=== PATIENT | female | born 1950 | race Caucasian/White ===

== ENCOUNTER 2022-01-16 14:43 | Emergency (ER) | payer MEDICARE ==
[2022-01-16 16:39] LABS: ESTIMATED GFR 79 mL/min (>60); TROPONIN I HIGH SENSITIVITY 13.9 pg/mL (<=60.3)
[2022-01-16] MEDS ORDERED: Sodium Chloride 0.9% 10 ML Syringe FLUSH PRN (17:28)
[2022-01-16] MEDS ORDERED: Furosemide 40 MG/4 ML VIAL IVPUSH ONE (17:29)
== END 2022-01-16 19:35 | disposition home or self-care (01) ==
LOC: JP.ED 14:43
DX: R07.89 Other chest pain (principal); E87.70 Fluid overload, unspecified; R79.89 Other specified abnormal findings of blood chemistry; Z88.5 Allergy status to narcotic agent; Z88.8 Allergy status to other drugs, medicaments and biological substances; Z91.040 Latex allergy status; Z88.1 Allergy status to other antibiotic agents; Z88.6 Allergy status to analgesic agent; Z88.2 Allergy status to sulfonamides; Z88.7 Allergy status to serum and vaccine; Z79.899 Other long term (current) drug therapy
CPT/HCPCS: 36415; 71046; 80053; 81001; 83880; 84484; 85025; 87086; 93005; 93010; 96374; 99282; 99285; J1940; J3490

== ENCOUNTER 2023-03-09 11:44 | Emergency (ER) | payer MEDICARE ==
[2023-03-09 13:55] LABS: APPEARANCE,URINE CLOUDY (CLEAR); BILIRUBIN,URINE NEGATIVE (NEGATIVE); COLOR,URINE YELLOW (YELLOW); GLUCOSE,URINE NEGATIVE (NEGATIVE); KETONES,URINE NEGATIVE (NEGATIVE); LEUKOCYTE ESTERASE,URINE MODERATE (NEGATIVE); NITRITE,URINE NEGATIVE (NEGATIVE); OCCULT BLOOD,URINE LARGE (NEGATIVE); PROTEIN,URINE 30 mg/dL (NEGATIVE); UROBILINOGEN,URINE 0.2 EU/dL (0.2-1.0)
[2023-03-09] MEDS ORDERED: cefTRIAXone 1 GM, Lidocaine 1% 2.1 ML IM ONE ×2 (14:41)
[2023-03-09 15:33] LABS: AMORPHOUS SEDIMENT,URINE RARE; BACTERIA,URINE MANY; EPITHELIAL CELLS,URINE RARE; MUCUS,URINE NOT SEEN; RBC,URINE 50-75 (0-5); WBC,URINE 20-30 (0-5)
== END 2023-03-09 15:56 | disposition home or self-care (01) ==
LOC: JP.ED 11:44
DX: N39.0 Urinary tract infection, site not specified (principal); I10 Essential (primary) hypertension; J45.909 Unspecified asthma, uncomplicated; E11.9 Type 2 diabetes mellitus without complications; Z88.8 Allergy status to other drugs, medicaments and biological substances; Z91.040 Latex allergy status; Z88.5 Allergy status to narcotic agent; Z88.2 Allergy status to sulfonamides; Z88.7 Allergy status to serum and vaccine; Z88.1 Allergy status to other antibiotic agents; Z79.899 Other long term (current) drug therapy
CPT/HCPCS: 81001; 87086; 87088; 87186; 96372; 99283; J0696

== ENCOUNTER → 2023-03-17 | Day surgery (SDC) | payer MEDICARE ==
[~2023-03-17] MED LIST: Propofol 200 MG/20 ML SDV ONE; Scopolamine 1.5 MG Transdermal Patch TOP SCH; Sodium Chloride 0.9% 1,000 ML IV SCH; fentaNYL 100 MCG/2 ML SDV ONE
== END ==
LOC: JP.SDS 08:06
PROVIDERS: ATTEND Surgery
DX: K22.89 Other specified disease of esophagus (principal); Z12.11 Encounter for screening for malignant neoplasm of colon; Z53.9 Procedure and treatment not carried out, unspecified reason; K21.9 Gastro-esophageal reflux disease without esophagitis; F41.8 Other specified anxiety disorders; I25.10 Atherosclerotic heart disease of native coronary artery without angina pectoris; I10 Essential (primary) hypertension; C85.90 Non-Hodgkin lymphoma, unspecified, unspecified site; Z85.028 Personal history of other malignant neoplasm of stomach; Z87.19 Personal history of other diseases of the digestive system; Z88.8 Allergy status to other drugs, medicaments and biological substances; Z91.041 Radiographic dye allergy status; Z88.5 Allergy status to narcotic agent; Z88.1 Allergy status to other antibiotic agents; Z91.040 Latex allergy status
CPT/HCPCS: 43239; 88305; A9270; J1642; J2704; J3010; J7030

== ENCOUNTER 2023-03-24 06:11 | Day surgery (SDC) | payer MEDICARE ==
[2023-03-24] MEDS ORDERED: Sodium Chloride 0.9% 1,000 ML IV SCH (06:35)
[2023-03-24] MEDS ORDERED: Scopolamine 1.5 MG Transdermal Patch TOP ONE (07:14)
[2023-03-24] MEDS ORDERED: Propofol 200 MG/20 ML SDV ONE ×2 (07:30→08:18)
[2023-03-24] MEDS ORDERED: fentaNYL 100 MCG/2 ML SDV ONE (07:30)
== END 2023-03-24 09:48 | disposition home or self-care (01) ==
LOC: JP.SDS 06:11
PROVIDERS: ATTEND Surgery
DX: Z12.11 Encounter for screening for malignant neoplasm of colon (principal); K57.30 Diverticulosis of large intestine without perforation or abscess without bleeding; I25.10 Atherosclerotic heart disease of native coronary artery without angina pectoris; C85.90 Non-Hodgkin lymphoma, unspecified, unspecified site; E66.9 Obesity, unspecified; Z91.041 Radiographic dye allergy status; Z88.8 Allergy status to other drugs, medicaments and biological substances; Z88.5 Allergy status to narcotic agent; Z91.040 Latex allergy status; Z88.1 Allergy status to other antibiotic agents; Z91.013 Allergy to seafood
CPT/HCPCS: A9270; G0121; J1642; J2704; J3010; J7030

== ENCOUNTER → 2024-01-16 | Day surgery (SDC) | payer MEDICARE ==
[~2024-01-16] MED LIST changes: +Ondansetron 4 MG/2 ML SDV ONE; -Scopolamine 1.5 MG Transdermal Patch TOP SCH; -Sodium Chloride 0.9% 1,000 ML IV SCH; -fentaNYL 100 MCG/2 ML SDV ONE; +fentaNYL 50 MCG/ML SDV ONE
[2024-01-16] MEDS: Dextrose 5%-Lactated Ringers 1,000 ML IV SCH (08:10)
== END ==
LOC: JP.SDS 07:29
PROVIDERS: ATTEND Family Medicine
DX: R10.13 Epigastric pain (principal); K21.9 Gastro-esophageal reflux disease without esophagitis; I10 Essential (primary) hypertension; I25.10 Atherosclerotic heart disease of native coronary artery without angina pectoris; E11.9 Type 2 diabetes mellitus without complications; J44.9 Chronic obstructive pulmonary disease, unspecified
CPT/HCPCS: 43235; J1642; J2405; J2704; J3010; J7121

== ENCOUNTER 2024-03-14 06:30 | Day surgery (SDC) | payer MEDICARE ==
[2024-03-14] MEDS: Sodium Chloride 0.9% 1,000 ML IV SCH (07:14)
[2024-03-14] MEDS ORDERED: Propofol 200 MG/20 ML SDV ONE (07:25)
[2024-03-14] MEDS: Ondansetron 4 MG/2 ML SDV IVPUSH ONE (09:39)
== END 2024-03-14 09:45 | disposition home or self-care (01) ==
LOC: JP.SDS 06:30
PROVIDERS: ATTEND Surgery
DX: R13.10 Dysphagia, unspecified (principal); J45.909 Unspecified asthma, uncomplicated; I11.0 Hypertensive heart disease with heart failure; K21.9 Gastro-esophageal reflux disease without esophagitis; I50.9 Heart failure, unspecified; E11.9 Type 2 diabetes mellitus without complications; Z79.84 Long term (current) use of oral hypoglycemic drugs; Z79.02 Long term (current) use of antithrombotics/antiplatelets; Z79.899 Other long term (current) drug therapy
CPT/HCPCS: 00731-QZ; J1642; J2405; J2704; J7030

== ENCOUNTER 2024-04-17 18:04 | Inpatient (IN) | payer MEDICARE ==
[2024-04-17 18:43] LABS: BASOPHILS ABSOLUTE AUTO 0.06 K/uL (0.00-0.10); BASOPHILS PERCENT AUTO 0.7 % (0.1-1.3); EOSINOPHILS ABSOLUTE AUTO 0.14 K/uL (0.00-0.40); EOSINOPHILS PERCENT AUTO 1.6 % (0.0-5.4); HEMATOCRIT 36.9 % (34.3-46.0); IMMATURE GRAN ABSOLUTE AUTO 0.04 K/uL (0.00-0.23); IMMATURE GRAN PERCENT AUTO 0.5 % (0.0-0.7); LYMPHOCYTES ABSOLUTE AUTO 1.71 K/uL (0.8-3.3); MEAN CORPUSCULAR HEMOGLOBIN 29.7 pg (31.6-35.5); MEAN CORPUSCULAR HGB CONC 35.2 g/dL (31.6-35.5); MEAN CORPUSCULAR VOLUME 84.2 fL (81.4-99.0); MONOCYTES ABSOLUTE AUTO 0.98 K/uL (0.20-0.90); MONOCYTES PERCENT AUTO 11.5 % (3.3-12.6); NEUTROPHILS PERCENT AUTO 65.7 % (40.0-78.1); PLATELET COUNT,PLT 252 K/uL (130-375); RED BLOOD CELL COUNT 4.38 M/uL (3.77-5.24); WHITE BLOOD CELL COUNT,WBC 8.5 K/uL (3.2-11.0)
[2024-04-17] MEDS: Sodium Chloride 0.9% 1,000 ML IV SCH ×3 (18:44→23:56)
[2024-04-17 19:05] LABS: A/G RATIO 0.8 (1.2-2.2); ALANINE AMINOTRANSFERASE,ALT 23 U/L (12-78); ALBUMIN 2.8 g/dL (3.4-5.0); ALKALINE PHOSPHATASE 85 U/L (46-116); ASPARTATE AMNIOTRANSFERASE,AST 30 U/L (15-37); BILIRUBIN TOTAL 0.6 mg/dL (0.2-1.0); BLOOD UREA NITROGEN,BUN 7 mg/dL (7-18); CALCIUM 8.7 mg/dL (8.5-10.1); CARBON DIOXIDE,CO2 28 mmol/L (21-32); CHLORIDE,CL 100 mmol/L (100-108); CREATININE 1.5 mg/dL (0.6-1.0); EST CRCL DRUG DOSING (CG) 24.35 mL/min; ESTIMATED GFR 37 mL/min (>60); GLUCOSE RANDOM 144 mg/dL (74-106); PROTEIN TOTAL,TP 6.5 g/dL (6.4-8.2)
[2024-04-17 19:09] LABS: ANION GAP 14.2 mmol/L (5.0-14.0); SODIUM,NA 140 mmol/L (140-148)
[2024-04-17 19:10] LABS: POTASSIUM,K 2.2 mmol/L (3.6-5.2)
[2024-04-17] MEDS: Ondansetron 4 MG/2 ML SDV IVPUSH ONE (19:40)
[2024-04-17] MEDS: Potassium Chloride 10 MEQ in Premix Bag 1 BAG IV ONE ×3 (20:03→23:47)
[2024-04-17 23:01] LABS: APPEARANCE,URINE SLIGHTLY CLOUDY (CLEAR); BILIRUBIN,URINE SMALL (NEGATIVE); COLOR,URINE YELLOW (YELLOW); GLUCOSE,URINE NEGATIVE (NEGATIVE); KETONES,URINE 15 mg/dL (NEGATIVE); LEUKOCYTE ESTERASE,URINE SMALL (NEGATIVE); NITRITE,URINE NEGATIVE (NEGATIVE); OCCULT BLOOD,URINE NEGATIVE (NEGATIVE); PH,URINE 6.5 (5.0-8.0); PROTEIN,URINE 30 mg/dL (NEGATIVE); UROBILINOGEN,URINE 0.2 EU/dL (0.2-1.0)
[2024-04-17] MEDS ORDERED: Insulin Lispro 100 Unit/ML 3 ML KwikPen SUBCUT SCH (23:05)
[2024-04-17] MEDS ORDERED: Nitroglycerin 0.4 MG Tab.SL SL PRN (23:05)
[2024-04-17] MEDS ORDERED: Albuterol 6.7 GM Inhaler INH PRN (23:05)
[2024-04-17] MEDS ORDERED: Triamcinolone Acetonide 0.1% Crm 15 GM Tube TOP PRN (23:05)
[2024-04-17] MEDS ORDERED: Ondansetron 4 MG Tab.DIS PO PRN (23:05)
[2024-04-17] MEDS ORDERED: Acetaminophen/HYDROcodone 325-5 MG Tab PO PRN (23:05)
[2024-04-17 23:19] LABS: AMORPHOUS SEDIMENT,URINE NOT SEEN; BACTERIA,URINE MANY; EPITHELIAL CELLS,URINE MANY; MUCUS,URINE NOT SEEN; RBC,URINE 0-5 (0-5)
[2024-04-18] MEDS: cefTRIAXone 1 GM in Sodium Chloride 0.9% 50 ML IV SCH (00:49)
[2024-04-18] MEDS: Magnesium Sulfate/Water Premix 2 GM in Premix Bag 1 BAG IV ONE ×2 (01:23→08:51)
[2024-04-18] MEDS: Ondansetron 4 MG/2 ML SDV IV PRN (05:54)
[2024-04-18 06:17] LABS: BASOPHILS ABSOLUTE AUTO 0.05 K/uL (0.00-0.10); BASOPHILS PERCENT AUTO 0.8 % (0.1-1.3); EOSINOPHILS ABSOLUTE AUTO 0.32 K/uL (0.00-0.40); EOSINOPHILS PERCENT AUTO 5.1 % (0.0-5.4); IMMATURE GRAN ABSOLUTE AUTO 0.03 K/uL (0.00-0.23); IMMATURE GRAN PERCENT AUTO 0.5 % (0.0-0.7); LYMPHOCYTES ABSOLUTE AUTO 1.34 K/uL (0.8-3.3); LYMPHOCYTES PERCENT AUTO 21.5 % (11.4-47.7); MEAN CORPUSCULAR HEMOGLOBIN 29.5 pg (31.6-35.5); MEAN CORPUSCULAR HGB CONC 34.4 g/dL (31.6-35.5); MEAN CORPUSCULAR VOLUME 85.8 fL (81.4-99.0); MONOCYTES ABSOLUTE AUTO 0.87 K/uL (0.20-0.90); MONOCYTES PERCENT AUTO 13.9 % (3.3-12.6); NEUTROPHILS ABSOLUTE AUTO 3.63 K/uL (1.0-7.6); NEUTROPHILS PERCENT AUTO 58.2 % (40.0-78.1); PLATELET COUNT,PLT 193 K/uL (130-375); RED BLOOD CELL COUNT 3.73 M/uL (3.77-5.24); WHITE BLOOD CELL COUNT,WBC 6.2 K/uL (3.2-11.0)
[2024-04-18 06:34] LABS: CALCIUM 7.8 mg/dL (8.5-10.1); CREATININE 1.3 mg/dL (0.6-1.0); EST CRCL DRUG DOSING (CG) 28.1 mL/min
[2024-04-18 06:37] LABS: ANION GAP 11.2 mmol/L (5.0-14.0); POTASSIUM,K 2.2 mmol/L (3.6-5.2)
[2024-04-18] MEDS: Sucralfate 1 GM Tab PO SCH (07:29)
[2024-04-18] MEDS: Pantoprazole 40 MG Tab.CR PO SCH (07:29)
[2024-04-18] MEDS: Potassium Chloride 10 MEQ in Premix Bag 1 BAG IV ONE ×4 (08:43→12:00)
[2024-04-18] MEDS: Clopidogrel 75 MG Tab PO SCH (08:46)
[2024-04-18] MEDS: Dicyclomine 10 MG Cap PO SCH (08:46)
[2024-04-18] MEDS: Rosuvastatin 10 MG Tab PO SCH (08:46)
[2024-04-18] MEDS: Metoprolol Tartrate 25 MG Tab PO SCH (08:46)
[2024-04-18] MEDS: Aspirin 81 MG Tab.EC PO SCH (08:46)
[2024-04-18] MEDS: Acyclovir 200 MG Cap PO SCH (08:47)
[2024-04-18] MEDS: Magnesium Oxide 400 MG Tab PO SCH (08:47)
[2024-04-18] MEDS: Sennosides/Docusate Sodium 50-8.6 MG Tab PO SCH (08:48)
[2024-04-18] MEDS: Insulin Lispro 100 Unit/ML 3 ML KwikPen SUBCUT SCH (11:59)
[2024-04-18] MEDS ORDERED: Prochlorperazine 10 MG/2 ML SDV IVPUSH PRN (13:52)
[2024-04-18 14:37] LABS: CALCIUM 7.7 mg/dL (8.5-10.1); CREATININE 1.2 mg/dL (0.6-1.0); EST CRCL DRUG DOSING (CG) 30.44 mL/min
[2024-04-18] MEDS: Dexamethasone 4 MG/ML SDV IVPUSH SCH (14:49)
[2024-04-18] MEDS: Potassium Chloride 10 MEQ in Premix Bag 1 BAG IV SCH (15:49)
[2024-04-19 05:58] LABS: HEMATOCRIT 30.2 % (34.3-46.0); HEMOGLOBIN 10.1 g/dL (11.2-15.5); IMMATURE GRAN ABSOLUTE AUTO 0.03 K/uL (0.00-0.23); IMMATURE GRAN PERCENT AUTO 0.6 % (0.0-0.7); LYMPHOCYTES ABSOLUTE AUTO 0.66 K/uL (0.8-3.3); LYMPHOCYTES PERCENT AUTO 14.2 % (11.4-47.7); MEAN CORPUSCULAR HEMOGLOBIN 29.3 pg (31.6-35.5); MEAN CORPUSCULAR HGB CONC 33.4 g/dL (31.6-35.5); MEAN CORPUSCULAR VOLUME 87.5 fL (81.4-99.0); MONOCYTES ABSOLUTE AUTO 0.27 K/uL (0.20-0.90); MONOCYTES PERCENT AUTO 5.8 % (3.3-12.6); NEUTROPHILS ABSOLUTE AUTO 3.68 K/uL (1.0-7.6); NEUTROPHILS PERCENT AUTO 79.4 % (40.0-78.1); PLATELET COUNT,PLT 186 K/uL (130-375); RED BLOOD CELL COUNT 3.45 M/uL (3.77-5.24); WHITE BLOOD CELL COUNT,WBC 4.6 K/uL (3.2-11.0)
[2024-04-19 06:19] LABS: CALCIUM 7.7 mg/dL (8.5-10.1); EST CRCL DRUG DOSING (CG) 36.53 mL/min; MAGNESIUM 2.2 mg/dL (1.8-2.4)
[2024-04-19 06:25] LABS: ANION GAP 11.9 mmol/L (5.0-14.0); POTASSIUM,K 2.9 mmol/L (3.6-5.2)
[2024-04-19] MEDS ORDERED: LORazepam 2 MG/ML SDV IVPUSH PRN (07:07)
[2024-04-19] MEDS: Potassium Chloride 20 MEQ Tab.ER PO SCH (08:24)
[2024-04-19] MEDS: Potassium Chloride 10 MEQ in Premix Bag 1 BAG IV SCH (08:26)
[2024-04-19] MEDS ORDERED: VILANTEROL INH PRN (09:00)
[2024-04-19] MEDS ORDERED: FLUTICASONE INH PRN (09:00)
[2024-04-20 06:06] LABS: HEMATOCRIT 29.6 % (34.3-46.0); HEMOGLOBIN 10.1 g/dL (11.2-15.5); IMMATURE GRAN ABSOLUTE AUTO 0.03 K/uL (0.00-0.23); IMMATURE GRAN PERCENT AUTO 0.5 % (0.0-0.7); LYMPHOCYTES ABSOLUTE AUTO 0.84 K/uL (0.8-3.3); LYMPHOCYTES PERCENT AUTO 12.8 % (11.4-47.7); MEAN CORPUSCULAR HGB CONC 34.1 g/dL (31.6-35.5); MEAN CORPUSCULAR VOLUME 87.8 fL (81.4-99.0); MONOCYTES ABSOLUTE AUTO 0.44 K/uL (0.20-0.90); MONOCYTES PERCENT AUTO 6.7 % (3.3-12.6); NEUTROPHILS ABSOLUTE AUTO 5.23 K/uL (1.0-7.6); PLATELET COUNT,PLT 184 K/uL (130-375); RED BLOOD CELL COUNT 3.37 M/uL (3.77-5.24); WHITE BLOOD CELL COUNT,WBC 6.5 K/uL (3.2-11.0)
[2024-04-20 06:21] LABS: CREATININE 1.1 mg/dL (0.6-1.0); EST CRCL DRUG DOSING (CG) 33.21 mL/min; POTASSIUM,K 3.5 mmol/L (3.6-5.2)
[2024-04-20 06:28] LABS: ANION GAP 11.5 mmol/L (5.0-14.0)
== END 2024-04-20 11:58 | disposition home or self-care (01) | DRG 641 ==
LOC: JP.ED 18:04 → JP.MS 20:53
PROVIDERS: ADMIT Nurse Practitioner; ATTEND Hospitalist
DX: E86.0 Dehydration (principal); C16.9 Malignant neoplasm of stomach, unspecified; N39.0 Urinary tract infection, site not specified; I11.0 Hypertensive heart disease with heart failure; I50.9 Heart failure, unspecified; I25.2 Old myocardial infarction; I25.10 Atherosclerotic heart disease of native coronary artery without angina pectoris; E11.9 Type 2 diabetes mellitus without complications; E66.9 Obesity, unspecified; D64.9 Anemia, unspecified; Z88.1 Allergy status to other antibiotic agents; Z88.5 Allergy status to narcotic agent; M19.90 Unspecified osteoarthritis, unspecified site; Z91.013 Allergy to seafood; G89.29 Other chronic pain; K21.9 Gastro-esophageal reflux disease without esophagitis; E87.6 Hypokalemia; M54.50 Low back pain, unspecified; F32.A Depression, unspecified; E83.42 Hypomagnesemia; E11.59 Type 2 diabetes mellitus with other circulatory complications; Z88.8 Allergy status to other drugs, medicaments and biological substances; Z88.6 Allergy status to analgesic agent; Z88.2 Allergy status to sulfonamides; Z88.7 Allergy status to serum and vaccine; Z95.5 Presence of coronary angioplasty implant and graft; Z98.1 Arthrodesis status; Z79.82 Long term (current) use of aspirin; Z79.02 Long term (current) use of antithrombotics/antiplatelets; Z90.49 Acquired absence of other specified parts of digestive tract; Z91.040 Latex allergy status; Z79.899 Other long term (current) drug therapy; Z90.710 Acquired absence of both cervix and uterus; Z98.890 Other specified postprocedural states
CPT/HCPCS: 36415; 74176; 80053; 85025; 86140; J2405; J3480; J7030 ×2; 80048; 81001; 82947; 83735; 99222; 99232; 99239; A9270-GY; J0696; J1100; J1815; J3475; J3490

== ENCOUNTER 2024-06-18 15:36 | Emergency (ER) | payer MEDICARE, BC ==
[2024-06-18 16:10] LABS: APPEARANCE,URINE CLOUDY (CLEAR); BILIRUBIN,URINE NEGATIVE (NEGATIVE); COLOR,URINE RED (YELLOW); GLUCOSE,URINE 100 mg/dL (NEGATIVE); KETONES,URINE NEGATIVE (NEGATIVE); NITRITE,URINE NEGATIVE (NEGATIVE); PROTEIN,URINE >=300 mg/dL (NEGATIVE); UROBILINOGEN,URINE 0.2 EU/dL (0.2-1.0)
[2024-06-18 16:11] LABS: AMORPHOUS SEDIMENT,URINE NOT SEEN; BACTERIA,URINE FEW; EPITHELIAL CELLS,URINE FEW; MUCUS,URINE NOT SEEN; OCCULT BLOOD,URINE LARGE (NEGATIVE); RBC,URINE PACKED (0-5)
[2024-06-18 16:41] LABS: BASOPHILS ABSOLUTE AUTO 0.07 K/uL (0.00-0.10); BASOPHILS PERCENT AUTO 0.8 % (0.1-1.3); EOSINOPHILS ABSOLUTE AUTO 0.81 K/uL (0.00-0.40); EOSINOPHILS PERCENT AUTO 9.2 % (0.0-5.4); HEMATOCRIT 35.8 % (34.3-46.0); HEMOGLOBIN 12.1 g/dL (11.2-15.5); IMMATURE GRAN ABSOLUTE AUTO 0.03 K/uL (0.00-0.23); IMMATURE GRAN PERCENT AUTO 0.3 % (0.0-0.7); LYMPHOCYTES ABSOLUTE AUTO 1.96 K/uL (0.8-3.3); LYMPHOCYTES PERCENT AUTO 22.3 % (11.4-47.7); MEAN CORPUSCULAR HGB CONC 33.8 g/dL (31.6-35.5); MEAN CORPUSCULAR VOLUME 88.6 fL (81.4-99.0); MONOCYTES ABSOLUTE AUTO 1.01 K/uL (0.20-0.90); MONOCYTES PERCENT AUTO 11.5 % (3.3-12.6); NEUTROPHILS PERCENT AUTO 55.9 % (40.0-78.1); PLATELET COUNT,PLT 213 K/uL (130-375); RED BLOOD CELL COUNT 4.04 M/uL (3.77-5.24); WHITE BLOOD CELL COUNT,WBC 8.8 K/uL (3.2-11.0)
[2024-06-18] MEDS: diphenhydrAMINE 50 MG/ML SDV IVPUSH ONE (16:44)
[2024-06-18] MEDS: methylPREDNISolone Sodium Succinate 125 MG/2 ML SDV IVPUSH ONE (16:46)
[2024-06-18] MEDS: Sodium Chloride 0.9% 1,000 ML IV ONE (16:48)
[2024-06-18 16:56] LABS: ANION GAP 11.8 mmol/L (5.0-14.0); BLOOD UREA NITROGEN,BUN 18 mg/dL (7-18); CALCIUM 8.4 mg/dL (8.5-10.1); CARBON DIOXIDE,CO2 27 mmol/L (21-32); CHLORIDE,CL 102 mmol/L (100-108); CREATININE 1.2 mg/dL (0.6-1.0); ESTIMATED GFR 48 mL/min (>60); GLUCOSE RANDOM 291 mg/dL (74-106); POTASSIUM,K 3.8 mmol/L (3.6-5.2); SODIUM,NA 137 mmol/L (140-148)
[2024-06-18] MEDS ORDERED: Iopamidol 612 MG/ML 100 ML Bottle IV SCH (17:00)
[2024-06-18] MEDS ORDERED: Sodium Chloride 0.9% 80 ML IV SCH (17:00)
== END 2024-06-18 18:30 | disposition home or self-care (01) ==
LOC: JP.ED 15:36
DX: R31.0 Gross hematuria (principal); N30.01 Acute cystitis with hematuria; I11.0 Hypertensive heart disease with heart failure; I50.9 Heart failure, unspecified; I25.10 Atherosclerotic heart disease of native coronary artery without angina pectoris; I25.2 Old myocardial infarction; J45.909 Unspecified asthma, uncomplicated; E66.9 Obesity, unspecified; E11.9 Type 2 diabetes mellitus without complications; Z88.1 Allergy status to other antibiotic agents; Z88.2 Allergy status to sulfonamides; Z88.7 Allergy status to serum and vaccine; Z91.013 Allergy to seafood; Z91.040 Latex allergy status; Z91.041 Radiographic dye allergy status; Z88.8 Allergy status to other drugs, medicaments and biological substances; Z91.048 Other nonmedicinal substance allergy status; Z79.82 Long term (current) use of aspirin; Z79.899 Other long term (current) drug therapy; Z90.49 Acquired absence of other specified parts of digestive tract; Z90.710 Acquired absence of both cervix and uterus; Z68.32 Body mass index [BMI] 32.0-32.9, adult
CPT/HCPCS: 36415; 74177; 80048; 81001; 85025; 87086; 96361; 96374; 96375; 99284; J1200; J2919; J7030; 87088; 87186; 99283